=== PATIENT | female | born 1985 | race Caucasian/White ===

== ENCOUNTER 2023-03-09 11:40 | Emergency (ER) | payer OTHER ==
[2023-03-09] MEDS ORDERED: LIDOCAINE 1% MPF 5 ML VIAL ONE ×2 (12:38→12:39)
[2023-03-09] MEDS ORDERED: BUPIVACAINE 0.5% PF 10 ML VIAL ONE ×2 (12:38→12:39)
[2023-03-09] MEDS ORDERED: AMOX/K CLAV 875 MG TAB ONE (12:38)
[2023-03-09] MEDS ORDERED: TDAP (DIPHTH,PERTUSS(ACELL),TET VAC) 0.5 ML VIAL IMVAC ONE ×2 (12:39→12:40)
--- NOTE | 2023-03-09 12:46 | EDPHYS ---
Physician Documentation [facility] Name: Janessa Quinonez Age: 37 yrs Sex: Female : 1985 Arrival Date: 03/09/2023 Time: 11:40 Bed 19 Private MD: ED Physician Jose Alberto Allen HPI: 03/09 12:17 This 37 yrs old Female presents to ER via Ambulatory with complaints of Toe Injury - snw ingrown right big toenail. 12:17 The patient presents with pain, swelling. The complaints affect the right foot. Onset: snw The symptoms/episode began/occurred 3 day(s) ago. Severity of symptoms: At their worst the symptoms were moderate. The patient has experienced similar episodes in the past, but today's symptoms are worse. The patient has not recently seen a physician. Historical: - Allergies: 11:56 Avocado (Laurus Persea); ll1 11:56 tomatoe; ll1 11:56 Carrot; ll1 11:56 lettuce; ll1 11:56 CORN CONTAINING PRODUCTS; ll1 - PMHx: 11:56 Asthma; borderline diabetes; Hypertensive disorder; GERD; low iron; ll1 - PSHx: 11:56 None; ll1 - Immunization history:: Client reports receiving the 2nd dose of the Covid vaccine. - Social history:: Smoking status: Patient reports the use of cigarette tobacco products, denies chronic smoking, but will smoke occasionally. ROS: 12:16 Constitutional: Negative for fever, chills, and weight loss, Eyes: Negative for injury, snw pain, redness, and discharge, ENT: Negative for injury, pain, and discharge, Neck: Negative for injury, pain, and swelling, Cardiovascular: Negative for chest pain, palpitations, and edema, Respiratory: Negative for shortness of breath, cough, wheezing, and pleuritic chest pain, Abdomen/GI: Negative for abdominal pain, nausea, vomiting, diarrhea, and constipation, Back: Negative for injury and pain, : Negative for injury, bleeding, discharge, and swelling, MS/Extremity: Negative for injury and deformity, Neuro: Negative for headache, weakness, numbness, tingling, and seizure, Psych: Negative for depression, anxiety, suicide ideation, homicidal ideation, and hallucinations. 12:16 Skin: Positive for cellulitis, sore right great toe. Exam: 12:14 Constitutional: This is a well developed, well nourished patient who is awake, alert, snw and in no acute distress. Head/Face: Normocephalic, atraumatic. Eyes: Pupils equal round and reactive to light, extra-ocular motions intact. Lids and lashes normal. Conjunctiva and sclera are non-icteric and not injected. Cornea within normal limits. Periorbital areas with no swelling, redness, or edema. ENT: Nares patent. No nasal discharge, no septal abnormalities noted. Tympanic membranes are normal and external auditory canals are clear. Oropharynx with no redness, swelling, or masses, exudates, or evidence of obstruction, uvula midline. Mucous membranes moist. Neck: Trachea midline, no thyromegaly or masses palpated, and no cervical lymphadenopathy. Supple, full range of motion without nuchal rigidity, or vertebral point tenderness. No Meningismus. Cardiovascular: Regular rate and rhythm with a normal S1 and S2. No gallops, murmurs, or rubs. Normal PMI, no JVD. No pulse deficits. Respiratory: Lungs have equal breath sounds bilaterally, clear to auscultation and percussion. No rales, rhonchi or wheezes noted. No increased work of breathing, no retractions or nasal flaring. Back: No spinal tenderness. No costovertebral tenderness. Full range of motion. MS/ Extremity: Pulses equal, no cyanosis. Neurovascular intact. Full, normal range of motion. Neuro: Awake and alert, GCS 15, oriented to person, place, time, and situation. Cranial nerves II-XII grossly intact. Motor strength 5/5 in all extremities. Sensory grossly intact. Cerebellar exam normal. Normal gait. Psych: Awake, alert, with orientation to person, place and time. Behavior, mood, and affect are within normal limits. 12:14 Skin: Appearance: normal except for affected area, lesion(s), ingrown right great toenail with surrounding inflammation. Vital Signs: 11:58 BP 121 / 110; Pulse 84; Resp 16; Pulse Ox 100% on R/A; Weight 122.47 kg; Height 5 ft. 5 ll1 in. ; Pain 10/10; 13:00 BP 131 / 81; Pulse 78; Resp 18; Pulse Ox 100% ; Pain 2/10; nj1 11:58 Body Mass Index 44.93 (122.47 kg, 165.1 cm) ll1 11:58 Pain Scale: Adult ll1 13:00 Pain Scale: Adult nj1 Procedures: 12:13 I \T\ D: Incision and drainage was performed for an abscess of the right Prepped with snw hibiclens. Anesthetized with 5 ml's 1% Lidocaine. marcaine 5 ml. Incised with scissors. Dressing: sterile 4x4 gauze, the patient tolerated the procedure well. 12:17 I \T\ D: Incision and drainage was performed for an abscess of the. snw MDM: 11:55 Patient medically screened. snw 12:13 Differential diagnosis: abrasion, contusion, fracture, ingrown toenail. Data reviewed: snw vital signs, nurses notes. I considered the following discharge prescriptions or medication management in the emergency department Medications were administered in the Emergency Department. See MAR. Counseling: I had a detailed discussion with the patient and/or guardian regarding: the historical points, exam findings, and any diagnostic results supporting the discharge/admit diagnosis, the need for outpatient follow up, for definitive care, to return to the emergency department if symptoms worsen or persist or if there are any questions or concerns that arise at home. Special discussion: Based on the history and exam findings, there is no indication for further emergent testing or inpatient evaluation. I discussed with the patient/guardian the need to see the primary care provider for further evaluation of the symptoms. Administered Medications: 12:34 Drug: Boostrix Tdap IM 0.5 ml {Note: [employer] LOT [id number] EXP 08/06/23.} Route: nj1 IM; Site: right deltoid; 13:00 Follow up: Response: No adverse reaction nj1 12:34 Drug: Bupivacaine Infiltration (0.5 %) 1 vials {Note: Given to [facility] for nj1 administration.} Volume: 10 ml; Route: Infiltration; 13:00 Follow up: Response: No adverse reaction nj1 12:34 Drug: Lidocaine Infiltration (1 %) 1 vials {Note: Given to [facility] for nj1 administration.} Volume: 5 ml; Route: Infiltration; 13:00 Follow up: Response: No adverse reaction nj1 12:34 Drug: Amoxicillin-Clavulanate PO 875 mg Route: PO; nj1 13:00 Follow up: Response: No adverse reaction nj1 Disposition Summary: 03/09/23 12:45 Discharge Ordered Location: Home snw Condition: Stable snw Diagnosis - Ingrowing nail snw Followup: snw - With: Emergency Department - When: As needed - Reason: Worsening of condition Followup: snw - With: Private Physician - When: 5 - 6 days - Reason: Recheck today's complaints, Continuance of care, Re-evaluation by your physician Discharge Instructions: - Discharge Summary Sheet snw - Ingrown Toenail snw - Fingernail or Toenail Removal, Adult, Care After snw Forms: - Medication Reconciliation Form snw - Thank You Letter snw - Antibiotic Education snw - Prescription Opioid Use snw - Patient Portal [email or web address].htm snw Prescriptions: - Augmentin 875-125 mg Oral Tablet - take 1 tablet by ORAL route every 12 hours for 10 days; 20 tablet; Refills: 0, snw Product Selection Permitted - Tramadol 50 mg Oral Tablet - take 1 tablet by ORAL route every 8 hours as needed; 12 tablet; Refills: 0, snw Product Selection Permitted Signatures: Chloe Cloud, NURSE QUALITY-C NURSE QUALITY-Csnw Katty Wilkins RN RN ll1 Sonali Ballard RN RN nj1
--- NOTE | 2023-03-09 12:46 | ER ---
Nurse's Notes [facility] Name: Janessa Quinonez Age: 37 yrs Sex: Female : 1985 Arrival Date: 03/09/2023 Time: 11:40 Bed 19 Private MD: Diagnosis: Ingrowing nail Presentation: 03/09 11:58 Chief complaint: Patient states: R great toe has been hurting for 2 weeks. No fever. ll1 Coronavirus screen: Vaccine status: Patient reports receiving the 2nd dose of the covid vaccine. Client denies travel out of the [place] in the last 14 days. At this time, the client does not indicate any symptoms associated with coronavirus-19. Ebola Screen: Patient denies travel to an Ebola-affected area in the 21 days before illness onset. Initial Sepsis Screen: Does the patient meet any 2 criteria? No. Patient's initial sepsis screen is negative. Does the patient have a suspected source of infection? Yes: Skin breakdown/wound. Risk Assessment: Do you want to hurt yourself or someone else? Patient reports no desire to harm self or others. Onset of symptoms was February 24, 2023. 11:58 Method Of Arrival: Ambulatory ll1 11:58 Acuity: ERNESTO 4 ll1 Triage Assessment: 11:58 General: Appears uncomfortable, Behavior is calm, cooperative, appropriate for age. ll1 Pain: Complains of pain in right foot Quality of pain is described as aching. Derm: Reports ingrown toenail R foot 1st digit. Musculoskeletal: Circulation, motion, and sensation intact. Capillary refill < 3 seconds. Historical: - Allergies: 11:56 Avocado (Laurus Persea); ll1 11:56 tomatoe; ll1 11:56 Carrot; ll1 11:56 lettuce; ll1 11:56 CORN CONTAINING PRODUCTS; ll1 - PMHx: 11:56 Asthma; borderline diabetes; Hypertensive disorder; GERD; low iron; ll1 - PSHx: 11:56 None; ll1 - Immunization history:: Client reports receiving the 2nd dose of the Covid vaccine. - Social history:: Smoking status: Patient reports the use of cigarette tobacco products, denies chronic smoking, but will smoke occasionally. Screenin:00 [facility] ED Fall Risk Assessment (Adult) History of falling in the last 3 months, nj1 including since admission No falls in past 3 months (0 pts) Confusion or Disorientation No (0 pts) Intoxicated or Sedated No (0 pts) Impaired Gait No (0 pts) Mobility Assist Device Used No (0 pt) Altered Elimination No (0 pt) Score/Fall Risk Level 0 - 2 = Low Risk Oriented to surroundings, Maintained a safe environment, Hourly rounding (assess needs \T\ fall precautionary measures) done. Abuse screen: Denies threats or abuse. Denies injuries from another. Nutritional screening: No deficits noted. Tuberculosis screening: No symptoms or risk factors identified. Assessment: 12:00 General: Appears in no apparent distress. comfortable, Behavior is calm, cooperative, [facility] appropriate for age. Pain: Complains of pain in Right first toenail Pain currently is 4 out of 10 on a pain scale. Quality of pain is described as throbbing. 12:00 Neuro: Level of Consciousness is awake, alert, obeys commands, Oriented to person, [facility] place, time, situation. Cardiovascular: Patient's skin is warm and dry. Respiratory: Airway is patent Respiratory effort is even, unlabored. Derm: Slight swelling to inner aspect of first right toe. Reports pain that is 4 out of 10 on a pain scale. Vital Signs: 11:58 BP 121 / 110; Pulse 84; Resp 16; Pulse Ox 100% on R/A; Weight 122.47 kg; Height 5 ft. 5 ll1 in. ; Pain 10/10; 13:00 BP 131 / 81; Pulse 78; Resp 18; Pulse Ox 100% ; Pain 2/10; nj1 11:58 Body Mass Index 44.93 (122.47 kg, 165.1 cm) 1 11:58 Pain Scale: Adult [facility] 13:00 Pain Scale: Adult [facility] ED Course: 11:42 Patient arrived in ED. im 11:48 Arm band placed on Patient placed in an exam room, on a stretcher. ll1 11:55 Chloe Cloud FNP-C is PHCP. snw 11:55 Jose Alberto Allen MD is Attending Physician. snw 12:00 Patient has correct armband on for positive identification. Bed in low position. Call [facility] light in reach. 12:00 Provided Education on: Fall precautions. nj1 12:02 Triage completed. ll1 12:08 Sonali Ballard, RN is Primary Nurse. nj1 13:00 No provider procedures requiring assistance completed. Patient did not have IV access nj1 during this emergency room visit. Administered Medications: 12:34 Drug: Boostrix Tdap IM 0.5 ml {Note: [employer] LOT [id number] EXP 08/06/23.} Route: nj1 IM; Site: right deltoid; 13:00 Follow up: Response: No adverse reaction nj1 12:34 Drug: Bupivacaine Infiltration (0.5 %) 1 vials {Note: Given to [facility] for nj1 administration.} Volume: 10 ml; Route: Infiltration; 13:00 Follow up: Response: No adverse reaction nj1 12:34 Drug: Lidocaine Infiltration (1 %) 1 vials {Note: Given to [facility] for nj1 administration.} Volume: 5 ml; Route: Infiltration; 13:00 Follow up: Response: No adverse reaction nj1 12:34 Drug: Amoxicillin-Clavulanate PO 875 mg Route: PO; nj1 13:00 Follow up: Response: No adverse reaction nj1 Medication: 12:34 Vaccine Information Statement (VIS) provided today. Questions and/or concerns nj1 addressed. VIS edition date: April 03, 2021. Outcome: 12:45 Discharge ordered by . rosalina 13:00 Discharged to home ambulatory. nj1 13:00 Condition: stable 13:00 Discharge instructions given to patient, Instructed on discharge instructions, follow up and referral plans. medication usage, Demonstrated understanding of instructions, follow-up care, medications, Prescriptions given X 2. 13:07 Patient left the ED. nj1 Signatures: Chloe Cloud FNP-C HOSPITAL HOUSEKEEPER-Csnw Vale Romero RN RN Katty Wilkins RN RN 1 Sonali Ballard RN RN nj1 Aparna Roberto im Corrections: (The following items were deleted from the chart) 13:09 12:58 Patient left the ED. ralf
[2023-03-09 13:47] VITALS: BP 121/110; O2SAT 100
== END 2023-03-09 12:58 | disposition home or self-care (01) ==
LOC: ER 11:40
PROC: 0H9MXZZ Drainage of Right Foot Skin, External Approach (ICD-10-PCS; principal; 2023-03-09)
DX: L60.0 Ingrowing nail (principal); L03.031 Cellulitis of right toe
CPT/HCPCS: 10060; J2001

== ENCOUNTER 2024-02-24 08:18 | Emergency (ER) | payer OTHER, SELFPAY ==
[2024-02-24] MEDS ORDERED: ONDANSETRON 4 MG/2 ML VIAL ONE (09:42)
[2024-02-24] MEDS ORDERED: MORPHINE 4 MG/ML SYR ONE (09:43)
[2024-02-24 10:02] LABS: Absolute Basophils 0.1 K/uL (0-0.5); Absolute Eosinophils 0.3 K/uL (0-0.5); Absolute Lymphocytes (CBC) 2.3 K/uL (0.7-4.9); Absolute Monocytes 0.5 K/uL (0.1-1.3); Absolute Neutrophil 5.9 K/uL (1.8-8.0); Basophils % 0.6 % (0-1.3); Eosinophils % 3.5 % (0-4.4); Hematocrit 42.6 % (36.0-45.0); Hemoglobin 13.9 g/dL (12.0-15.0); Lymphocytes % 25.6 % (15.3-44.8); MCHC 32.7 g/dL (32.0-36.0); MCV 88.5 fL (80-100); MPV 7.6 fL (7.6-11.3); Monocytes % 5.3 % (3.3-12.3); Nucleated Red Blood Cells % 0.1 % (0-0); Platelets 343 thou/uL (152-406); RBC Red Blood Cell Count 4.81 M/uL (3.86-4.86)
[2024-02-24 10:16] LABS: Anion Gap 6.9 mEq/L (5.0-15.0); Potassium 3.9 mEq/L (3.5-5.1)
[2024-02-24 10:17] LABS: Urine Bacteria <20 /HPF (<20); Urine Bilirubin NEGATIVE (Negative); Urine Blood 2+ (Negative); Urine Clarity Extremely Turbid (Clear); Urine Color Light-Yellow (Yellow); Urine Culture Reflex Order NOT NEEDED; Urine Glucose NEGATIVE (Negative); Urine Ketones NEGATIVE (Negative); Urine Microscopic Reflex YN ORDER UMIC; Urine Mucus Slight /HPF (None Seen); Urine Nitrite NEGATIVE (Negative); Urine Protein NEGATIVE (Negative); Urine RBC <5 /HPF (None Seen); Urine Urobilinogen Normal (Normal)
--- NOTE | 2024-02-24 11:57 | RAD REPORT ---
EXAM DESCRIPTION: CT - Stone Protocol - 02/24/2024 10:06 am CLINICAL HISTORY: right flank pain COMPARISON: No comparisons TECHNIQUE: Thin cut axial CT imaging of the abdomen and pelvis was performed without IV contrast. Mu ltiplanar reformats were generated and reviewed. All CT scans are performed using dose optimization technique as appropriate and may include automated exposure control or mA/KV adjustment according to patient size. FINDINGS: No suspicious findings in the lung bases. The liver, spleen, adrenal gland and pancreas show no suspicious findings. Gallbladder and biliary tr ee are also without suspicious finding. Symmetric renal contour, without suspicious parenchymal findings within limits of noncontrast techniq ue. No evidence of radiopaque calculi or hydroureteronephrosis. No dilated bowel loops or bowel wall thickening. Appendix is unremarkable. Tubal occlusion devices in place. No free air, free fluid or inflammatory stranding. No hernia, mass or bulky lymphadenopathy. The urinary bladder is without significant finding. No suspicious bony findings. IMPRESSION: No acute intra-abdominal process.
--- NOTE | 2024-02-24 12:04 | ER ---
Nurse's Notes [facility] Name: Janessa Quinonez Age: 38 yrs Sex: Female : 1985 Arrival Date: 02/24/2024 Time: 08:18 Bed 19 Private MD: Diagnosis: Low back pain;Radiculopathy, lumbosacral region Presentation: 02/23 08:56 Chief complaint: Severe low back pain that radiates to right leg x 2 days. Coronavirus hb screen: At this time, the client does not indicate any symptoms associated with coronavirus-19. Ebola Screen: No symptoms or risks identified at this time. Initial Sepsis Screen: Does the patient meet any 2 criteria? No. Patient's initial sepsis screen is negative. Does the patient have a suspected source of infection? No. Patient's initial sepsis screen is negative. Risk Assessment: Do you want to hurt yourself or someone else? Patient reports no desire to harm self or others. Onset of symptoms was February 23, 2024. 08:56 Method Of Arrival: Ambulatory hb 08:56 Acuity: ERNESTO 3 hb Triage Assessment: 08:59 General: Appears in no apparent distress. Behavior is calm, cooperative. Pain: Pain hb currently is 9 out of 10 on a pain scale. Neuro: Level of Consciousness is awake, alert, obeys commands, Oriented to person, place, time, situation. Cardiovascular: Patient's skin is warm and dry. Respiratory: Respiratory effort is even, unlabored, Respiratory pattern is regular, symmetrical. Musculoskeletal: Reports low back pain that radiates to right leg. Historical: - Allergies: 08:58 AVOCADO (LAURUS PERSEA); hb 08:58 CORN CONTAINING PRODUCTS; hb 08:58 lettuce; hb 08:58 tomatoe; hb 08:58 Carrot; hb - Home Meds: 08:58 Metformin Oral [Active]; hb - PMHx: 08:58 Asthma; Borderline Diabetes; GERD; Hypertensive disorder; Low Iron; hb - PSHx: 08:58 None; hb - Immunization history:: Adult Immunizations up to date. - Infectious Disease History:: Denies. - Social history:: Smoking status: Patient/guardian denies using tobacco. - Family history:: not pertinent. - Hospitalizations: : No recent hospitalization is reported. Screenin:30 [facility] ED Fall Risk Assessment (Adult) History of falling in the last 3 months, nj1 including since admission No falls in past 3 months (0 pts) Confusion or Disorientation No (0 pts) Intoxicated or Sedated No (0 pts) Impaired Gait No (0 pts) Mobility Assist Device Used No (0 pt) Altered Elimination No (0 pt) Score/Fall Risk Level 0 - 2 = Low Risk Oriented to surroundings, Maintained a safe environment, Hourly rounding (assess needs \T\ fall precautionary measures) done. Abuse screen: Denies threats or abuse. Denies injuries from another. Nutritional screening: No deficits noted. Tuberculosis screening: No symptoms or risk factors identified. Assessment: 09:20 General: Appears in no apparent distress. comfortable, Behavior is calm, cooperative, nj1 appropriate for age. 09:20 Pain: Complains of pain in back Pain radiates to right leg. Pain: Pain currently is 9 nj1 out of 10 on a pain scale. Neuro: Level of Consciousness is awake, alert, obeys commands, Oriented to person, place, time, situation. Cardiovascular: Patient's skin is warm and dry. Respiratory: Airway is patent Respiratory effort is even, unlabored. Musculoskeletal: Reports pain in back since yesterday. 09:50 Reassessment: Patient appears in no apparent distress at this time. Patient and/or nj1 family updated on plan of care and expected duration. Pain level reassessed. Patient is alert, oriented x 3, equal unlabored respirations, skin warm/dry/pink. 10:58 Reassessment: Patient appears in no apparent distress at this time. Patient and/or nj1 family updated on plan of care and expected duration. Pain level reassessed. Patient is alert, oriented x 3, equal unlabored respirations, skin warm/dry/pink. 12:10 Reassessment: Patient appears in no apparent distress at this time. Patient is alert, nj1 oriented x 3, equal unlabored respirations, skin warm/dry/pink. 12:21 Reassessment: Patient states feeling better. Patient states symptoms have improved. nj1 Vital Signs: 08:56 BP 149 / 97; Pulse 71; Resp 18; Temp 98; Pulse Ox 100% on R/A; Weight 120.2 kg; Height hb 5 ft. 6 in. ; Pain 9/10; 09:50 BP 147 / 68; Pulse 78; Resp 17; Pulse Ox 95% ; Pain 9/10; nj1 10:58 BP 153 / 100; Pulse 63; Resp 18; Pulse Ox 96% on R/A; nj1 12:08 BP 135 / 63; Pulse 81; Resp 14; Pulse Ox 96% on R/A; nj1 08:56 Body Mass Index 42.77 (120.20 kg, 167.64 cm) hb 08:56 Pain Scale: Adult hb 09:50 Pain Scale: Adult nj1 ED Course: 08:20 Patient arrived in ED. ra3 08:[address] MD is Attending Physician. rn 08:58 Triage completed. hb 08:59 Arm band placed on. hb 09:24 Sonali Ballard RN is Primary Nurse. nj1 09:25 Patient has correct armband on for positive identification. Bed in low position. Call nj1 light in reach. Side rails up X 1. 09:25 Provided Education on: call light, fall precautions. nj1 09:56 Missed attempt(s): 20 gauge in right in left antecubital area. Bleeding controlled, nj1 band aid applied, catheter tip intact. 10:08 CT Stone Protocol In Process Unspecified. EDMS 10:26 Head of bed Elevated. mb4 12:20 No provider procedures requiring assistance completed. Patient did not have IV access nj1 during this emergency room visit. Administered Medications: 09:52 Drug: Ondansetron IVP 4 mg IVP once; over 2 minutes Route: IVP; Site: right antecubital;nj1 10:57 Follow up: Response: No adverse reaction nj1 09:54 Drug: morphine IVP or IV 4 mg IVP once over 4 mins Route: IVP; Infused Over: 4 mins; nj1 Site: right antecubital; 10:58 Follow up: Response: No adverse reaction; Pain is decreased nj1 Medication: 12:21 VIS not applicable for this client. nj1 Outcome: 12:04 Discharge ordered by . rn 12:20 Discharged to home ambulatory, nj1 12:20 Condition: stable 12:20 Discharge instructions given to patient, Instructed on discharge instructions, follow up and referral plans. medication usage, Demonstrated understanding of instructions, follow-up care, medications, Prescriptions given X 2, 12:21 Patient left the ED. nj1 Signatures: Dispatcher [employer] EDMS Pelon Lane MD MD rn Romero, Vale, RN RN Jolly Romero mb4 Sonali Ballard RN RN nj1 Syl Sánchez ra3 Corrections: (The following items were deleted from the chart) 08:59 08:56 Acuity: ERNESTO 4 hb hb 10:58 10:57 Response: No adverse reaction; Pain is decreased [place] [id number] 12:11 12:08 BP 130 / 90; Pulse 92bpm; Resp 14bpm; Pulse Ox 98% RA; [place] [id number]
--- NOTE | 2024-02-24 12:05 | EDPHYS ---
Physician Documentation [facility] Name: Janessa Quinonez Age: 38 yrs Sex: Female : 1985 Arrival Date: 02/24/2024 Time: 08:18 Bed 19 Private MD: ED Physician [address] HPI: 02/23 09:50 This 38 yrs old Female presents to ER via Ambulatory with complaints of Back Pain. rn 09:50 The patient presents with pain that is acute, with no known mechanism of injury. The rn symptoms are located in the low back. 09:50 Onset: The symptoms/episode began/occurred 2 day(s) ago. rn 09:50 The pain radiates to the right leg. The problem was sustained without known cause. rn Modifying factors: The patient symptoms are alleviated by nothing, the patient symptoms are aggravated by any movement. Severity of symptoms: At their worst the symptoms were moderate, in the emergency department the symptoms have improved. The patient has not experienced similar symptoms in the past. Patient reports right lower back pain that radiates down right leg. Started a few days ago. Associated with burning sensation and tingling of the right leg. No weakness. No injury or fall. Denies bowel or bladder issues. Denies abdominal pain.. Historical: - Allergies: 08:58 AVOCADO (LAURUS PERSEA); hb 08:58 CORN CONTAINING PRODUCTS; hb 08:58 lettuce; hb 08:58 tomatoe; hb 08:58 Carrot; hb - Home Meds: 08:58 Metformin Oral [Active]; hb - PMHx: 08:58 Asthma; Borderline Diabetes; GERD; Hypertensive disorder; Low Iron; hb - PSHx: 08:58 None; hb - Immunization history:: Adult Immunizations up to date. - Infectious Disease History:: Denies. - Social history:: Smoking status: Patient/guardian denies using tobacco. - Family history:: not pertinent. - Hospitalizations: : No recent hospitalization is reported. ROS: 09:50 Constitutional: Negative for fever, chills, and weight loss, Eyes: Negative for injury, rn pain, redness, and discharge, Cardiovascular: Negative for chest pain, palpitations, and edema, Respiratory: Negative for shortness of breath, cough, wheezing, and pleuritic chest pain, Abdomen/GI: Negative for abdominal pain, nausea, vomiting, diarrhea, and constipation, Back: Positive for low back pain MS/Extremity: Positive for right leg pain Skin: Negative for injury, rash, and discoloration, Neuro: Negative for headache, weakness, and seizure, Exam: 09:50 Constitutional: This is a well developed, well nourished patient who is awake, alert, rn and in no acute distress. Cardiovascular: Regular rate and rhythm. No pulse deficits. Respiratory: No increased work of breathing, no retractions or nasal flaring. Abdomen/GI: Soft, nontender, no masses Back: No spinal tenderness. MS/ Extremity: Pulses equal, no cyanosis. Neuro: Awake and alert, GCS 15. Cranial nerves II-XII grossly intact. Motor strength 5/5 in all extremities. Sensory grossly intact. Vital Signs: 08:56 BP 149 / 97; Pulse 71; Resp 18; Temp 98; Pulse Ox 100% on R/A; Weight 120.2 kg; Height hb 5 ft. 6 in. ; Pain 9/10; 09:50 BP 147 / 68; Pulse 78; Resp 17; Pulse Ox 95% ; Pain 9/10; nj1 10:58 BP 153 / 100; Pulse 63; Resp 18; Pulse Ox 96% on R/A; nj1 12:08 BP 135 / 63; Pulse 81; Resp 14; Pulse Ox 96% on R/A; nj1 08:56 Body Mass Index 42.77 (120.20 kg, 167.64 cm) hb 08:56 Pain Scale: Adult hb 09:50 Pain Scale: Adult nj1 MDM: 08:47 Patient medically screened. rn 12:02 Differential diagnosis: arthritis, Fatigue Osteoarthritis ruptured disc, rn Ureterolithiasis Disc disease, radiculopathy, sciatica. Data reviewed: vital signs, nurses notes, radiologic studies, CT scan, and as a result, I will discharge patient. Counseling: I had a detailed discussion with the patient and/or guardian regarding the historical points, exam findings, and any diagnostic results supporting the discharge/admit diagnosis, lab results, radiology results, the need for outpatient follow up, to return to the emergency department if symptoms worsen or persist or if there are any questions or concerns that arise at home. Special discussion: I discussed with the patient/guardian in detail that at this point there is no indication for admission to the hospital. It is understood, however, that if the symptoms persist or worsen the patient needs to return immediately for re-evaluation. ED course: No acute findings and imaging or labs today. No evidence of urinary infection. Patient feels better, will send home with as needed medications and given return precautions. I have personally reviewed all of the results, including but not limited to blood tests and imaging deemed necessary to safely discharge this patient at this time. All results given to and printed out for patient. I personally went over all the results with the patient and answered all questions. Patient will follow-up with PCP and or specialist as discussed. Return precautions given and understood.. 02/23 09:00 Order name: CBC with Diff; Complete Time: 10:19 rn 02/23 09:00 Order name: Basic Metabolic Panel; Complete Time: 10: rn 02/23 09:00 Order name: Test, Urine; Complete Time: 10: rn 02/23 09:00 Order name: Urinalysis w/ reflexes; Complete Time: 10: rn 02/23 09:00 Order name: CT Stone Protocol; Complete Time: 11:58 rn Administered Medications: 09:52 Drug: Ondansetron IVP 4 mg IVP once; over 2 minutes Route: IVP; Site: right antecubital;nj1 10:57 Follow up: Response: No adverse reaction nj1 09:54 Drug: morphine IVP or IV 4 mg IVP once over 4 mins Route: IVP; Infused Over: 4 mins; nj1 Site: right antecubital; 10:58 Follow up: Response: No adverse reaction; Pain is decreased nj1 Disposition Summary: 02/24/24 12:04 Discharge Ordered Notes: Location: Home rn Problem: new rn Symptoms: have improved rn Condition: Stable rn Diagnosis - Low back pain rn - Radiculopathy, lumbosacral region rn Followup: rn - With: Private Physician - When: As needed - Reason: Recheck today's complaints, Re-evaluation by your physician Discharge Instructions: - Discharge Summary Sheet rn - Acute Back Pain, Adult rn - Lumbosacral Radiculopathy rn Forms: - Medication Reconciliation Form rn - 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 [email or web address] [email or web address]
[2024-02-24 12:34] VITALS: BP 135/63; TEMP 98; O2SAT 96
== END 2024-02-24 12:21 | disposition home or self-care (01) ==
LOC: ER 08:18
DX: M54.17 Radiculopathy, lumbosacral region (principal)
CPT/HCPCS: 36415; 74176; 76377; 80048; 81001; 81025; 85025; 96374; 96375; 99284; J2405